=== PATIENT | male | born 1950 | race Caucasian/White ===

== ENCOUNTER 2019-05-05 10:31 | Emergency (ER) | payer MEDICARE ==
[2019-05-05] MEDS ORDERED: Doxycycline 100 MG Cap ONE (11:15)
--- NOTE | 2019-05-05 13:23 | ER ---
REASON FOR EMERGENCY ROOM VISIT: Tick bite. HISTORY OF PRESENT ILLNESS: This 68-year-old man is accompanied to his because of the presence of a tick bite that caused a red rash on his left upper buttock region. He states that he sustained a tick bite approximately 1 week ago and it was on his upper outer buttock area. He does not know if it was a deer tick or regular tick, but it was removed and he is unsure as to how long it was there. He has had a number of instances in the past where he has found the ticks on his body, the vast majority of which are regular ticks and not the smaller deer ticks, but he has picked a couple of smaller ticks off his body as well, none of which were ever stuck to his skin. He has not had any fever, chills, arthralgias, or headaches. PAST MEDICAL HISTORY: Noncontributory. MEDICATIONS: Aceon. ALLERGIES: NONE TO MEDICATIONS. REVIEW OF SYSTEMS: Pertinent positives and negatives as listed in the HPI. PHYSICAL EXAMINATION: GENERAL: Reveals a pleasant man, in no acute distress. He is afebrile. VITAL SIGNS: Pulse is 72, blood pressure 146/97, respiratory rate 18, O2 saturation 100%. SKIN: He has one area where you could see a tick bite in the upper outer left buttock region. It has a 3 to 4 cm diameter area of erythema that is fairly well demarcated. It is not tender. This does not have the appearance of erythema migrans or a "target rash." IMPRESSION: Tick bite, uncertain as to the offending agent. Very unlikely to be high risk for transmission of Lyme disease. PLAN: We will go ahead with prophylactic treatment as the patient wants to proceed with this. Therefore, at his request, we will give him doxycycline 200 mg as a onetime dose. I informed him as to issues concerning photosensitivity and the possibility of GI upsets. He was advised to take this with food. I did discuss with him and his the importance of precautions that should be taken including frequent laundering of clothing, application of DEET and other agents as repellents. All questions were answered. They understand and agree with this plan. THERON /[id number]
== END 2019-05-05 11:20 | disposition home or self-care (01) ==
LOC: LB.ED 10:31
DX: S30.860A Insect bite (nonvenomous) of lower back and pelvis, initial encounter (principal); W57.XXXA Bitten or stung by nonvenomous insect and other nonvenomous arthropods, initial encounter
CPT/HCPCS: 99281; A9270; 99282

== ENCOUNTER → 2019-09-18 | Outpatient (CLI) | payer MEDICARE | LOC: LB.MAM 13:40 | PROVIDERS: ATTEND Family Medicine | DX: E23.0 Hypopituitarism (principal) | CPT/HCPCS: 77080 ==

== ENCOUNTER 2020-04-11 16:45 | Emergency (ER) | payer MEDICARE ==
[2020-04-11] MEDS ORDERED: Diltiazem 25 MG/5 ML SDV IVPUSH ONE ×2 (16:58→17:48)
[2020-04-11] MEDS ORDERED: Sodium Chloride 0.9% 10 ML Syringe FLUSH PRN (17:26)
[2020-04-11] MEDS ORDERED: Sodium Chloride 0.9% 1,000 ML IV SCH (17:30)
[2020-04-11] MEDS: Diltiazem 100 MG in Sodium Chloride 0.9% 100 ML IV SCH ×2 (19:07→21:10)
[2020-04-11] MEDS ORDERED: Apixaban 5 MG Tab PO SCH (20:00)
--- NOTE | 2020-04-12 00:18 | DISCH ---
DATE OF TRANSFER: To [facility] in [place] is 04/11/2020. ADMISSION DIAGNOSES: Acute atrial fibrillation with elevated troponin 1. DISCHARGE/TRANSFER DIAGNOSES: Acute atrial fibrillation with elevated troponin 1. HOSPITAL COURSE: This 69-year-old man with no prior significant cardiac history , was admitted through the emergency room with a 4-day history of feeling weak and generalized malaise as well as having tachycardia and lower than usual blood pressure at home. Details concerning the history prior to that is as outlined in his admission history and physical. It should be noted that he was set to have a radionuclide nuclear stress test last summer because of an elevated calcium coronary score, but that was never followed up on. He does not have a history of smoking or past coronary history. He does have a history of the following; 1. Hypertension. 2. Type 2 diabetes mellitus. 3. Hypercholesterolemia. 4. Cataracts. 5. Possible glaucoma. Medications include Aceon 8 mg p.o. daily, metformin 500 mg p.o. daily, and aspirin 81 mg p.o. daily. The patient came in, was in acute atrial fibrillation with a rapid ventricular response of 145. He did have some Q-waves in inferior leads, but otherwise no evidence of acute myocardial ischemia was noted. He received a dose of diltiazem IV followed by a 2nd dose of diltiazem 25 mg IV and was placed on diltiazem drip at 5 mg/hour. This controlled his ventricular rate and he has maintained it in the high 70s to low 90s throughout his brief hospital stay. His initial troponin when he was seen in the emergency room was 0.23, but a followup troponin approximately 4-5 hours later was elevated significantly at 0.315. His electrolytes on admission were normal. His CBC was normal. His renal function is normal (please see that reports). His chest x-ray showed no active acute pulmonary disease. No cardiomegaly. He remained stable and asymptomatic with regard to chest pain or shortness of breath. However, his elevated troponin was a matter of concern. Therefore, I spoke to the unix systems administrator cash reconciliation specialist at [facility] in [place], Dr. Acosta, who agreed he should be transferred there to their facility because of the ability for them from the standpoint of invasive Cardiology. I subsequently outlined the patient's history to the admitting hospitalist, Dr. Queen, who concurred. We did start him on Eliquis. He received one 5 mg dose at approximately 8:49 p.m. this evening. The reasons for wanting to transfer him were discussed with the patient. He understands and agrees with this plan. All questions were answered. THERON /[id number] MTDD
--- NOTE | 2020-04-12 03:48 | HP ---
REASON FOR EMERGENCY ROOM VISIT: Rapid pulse. HISTORY: This 69-year-old gentleman comes to the emergency room with a 3-day history of feeling somewhat weak and "crappy" as well as noticing a rapid pulse rate while at home. He noticed this 3 days ago after he felt the above-mentioned symptoms, and he checked his blood pressure and pulse with his home monitor and noticed that his heart rate was as high as the 140s to 160 range and his blood pressure generally ranged in the 100 to 120 systolic range, but on a couple of occasions, he dipped below 100. He did not experience any chest pain, chest discomfort, chest tightness, arm pain, jaw pain, shortness of breath, nausea, or vomiting. He thought perhaps he was somewhat dehydrated, therefore he drank a lot of Pedialyte and water, and stated that he urinated a considerable amount the following day. These symptoms persisted for 3 days and he decided to come in to see Dr. Carias who noted him to be in acute atrial fibrillation with a rapid ventricular response at 142 beats per minute. He also was noted to have a troponin elevation at 0.237, but again, he did not have any symptoms of chest discomfort. Dr. Carias sent him to the emergency room where he was seen by the emergency room practitioner on-call who hooked him up to a monitor and noted his rate to be in the 140s and in atrial fibrillation. The patient's past medical history recently is significant for him seeing a aeronautical inspector because of a high coronary calcium score on screening and therefore he saw a aeronautical inspector in [place], Dr. Jones. He was advised that because of this coronary calcium score, that he undergo a nuclear stress test and that was scheduled, but the patient elected not to have this done. This was last April. Since then, he has been relatively asymptomatic. He has no history of any episodes of chest pain or exertional chest pain, unusual jaw or arm pain, or back pain. PAST MEDICAL HISTORY: Significant for: 1. Hypertension. 2. Type 2 diabetes. 3. Hypercholesterolemia. 4. History of cataracts. 5. He has had left shoulder surgery and several hernia operations. HABITS: He drinks occasionally. He is a nonsmoker. SOCIAL HISTORY: He lives at home with his . FAMILY HISTORY: Both the patient's father and mother lived to well into their 90s, his father having at age 92; he did have a pacemaker, but no history of heart attack according to the patient. His mother is alive, but is in a halfway with dementia. He has 2 sisters who are alive and well, 1 daughter who is also healthy. MEDICATIONS: Include: 1. Aspirin 81 mg p.o. daily. 2. Metformin 500 mg extended release daily. 3. Perindopril (Aceon) 8 mg p.o. daily. ALLERGIES: TO MSG. NO ALLERGIES TO MEDICATIONS. REVIEW OF SYSTEMS: Pertinent positives and negatives as listed in the HPI. PHYSICAL EXAMINATION: GENERAL: His blood pressure currently is 115/71, heart rate is 88 and irregular, respiratory rate 16, O2 sats 96% on room air. HEENT: No scleral icterus is noted. Oropharynx is normal. NECK: No bruits. No JVD is noted. No adenopathy. CHEST: Clear to auscultation with good air exchange. No wheezes, rhonchi, or rales. CARDIAC: Irregular rate without murmur. There is no friction rub noted. ABDOMEN: Nondistended. Bowel sounds are present. Soft, nontender. No hepatosplenomegaly. EXTREMITIES: Normal pulses. No edema. No deformities. No cyanosis. NEUROLOGIC: He is awake and alert and responds appropriately verbally. He moves all 4 extremities. FURTHER EMERGENCY ROOM COURSE: Immediately upon arrival and upon connecting him to a monitor, labs were drawn that included a BMP which showed his electrolytes to be normal with a potassium of 4.2, his CO2 was 27.5, his glucose was 115. His creatinine is 0.93 with an estimated GFR of greater than 60. Troponin 1 was elevated at 0.237. His TSH was normal at 1.5 to 3. CBC was performed with a white count of 8400 and a hemoglobin of 15.3. His platelet count is 298. A 12-lead EKG initially showed atrial fibrillation with a rapid ventricular response at 142 beats per minute. He had changes consistent with an inferior wall TX, age indeterminate, mainly manifested by Q-waves in lead III and in the inferior leads. A chest x-ray was obtained showing no pulmonary infiltrates or evidence of CHF. This was a portable film. He was given an initial dose of 20 mg of diltiazem, that lowered his ventricular rate to the 110 to 115 range, and he was normotensive at this point with blood pressures ranging between 110 and 115 systolic. Because of this, after approximately 20 minutes, a second dose of diltiazem was given 20 mg IV and this brought his ventricular rate to between 80 and 90. He remained in atrial fibrillation and a repeat EKG demonstrated this. It did show that he has some Q-waves in lead III and possibly aVF. In light of this and in light of no history of cardiopulmonary disease and no history of congestive failure, it was felt that he needed to be placed on a diltiazem drip and monitored overnight. IMPRESSION: Acute atrial fibrillation with controlled ventricular response and no hemodynamic instability at this time. PLAN: I spoke with Dr. Carias who initially saw him in the clinic and we agreed that he should be admitted and monitored. We will obtain serial troponin levels and a repeat 12-lead EKG in the morning. In addition, we will start him on a diltiazem drip and I will start him at 5 mg/hour. We will also begin him on Eliquis at 5 mg p.o. b.i.d. I explained to the patient the rationale for recommending this. If his troponins are further elevated or we have difficulty controlling his rate with these measures, we will consider transfer at that time. I explained to the patient that we will begin him on Eliquis and did discuss the risks, goals, and alternatives to that therapy and he agrees with this plan. All questions were answered. LENI/EMANI
--- NOTE | 2020-04-13 12:21 | CR ---
DATE OF SERVICE: 04/11/20 CLINICAL DATA: pain AP PORTABLE CHEST: No priors. The heart is enlarged. The aorta is calcified and ectatic. The lungs are clear. No pneumothorax. No pleural effusions. No other significant findings. [id number] [facility]
== END 2020-04-11 23:50 ==
LOC: LB.ED 16:45 → LB.MS 19:31 → UNDOADMOB 19:31 → LB.ED 23:50 → UNDODISOB 23:50
DX: I48.91 Unspecified atrial fibrillation (principal); I10 Essential (primary) hypertension; E11.9 Type 2 diabetes mellitus without complications; Z79.82 Long term (current) use of aspirin; Z79.84 Long term (current) use of oral hypoglycemic drugs; Z79.899 Other long term (current) drug therapy; Z91.018 Allergy to other foods
CPT/HCPCS: 36415; 71045; 84484; 93005; 96365; 96366; 96376; 99285-25; A0425; A0429; A9270-GY; J3490; J7030; J7050

== ENCOUNTER 2022-04-12 20:15 | Emergency (ER) | payer MEDICARE | END 2022-04-12 21:00 | disposition home or self-care (01) | LOC: LB.ED 20:15 | DX: I49.3 Ventricular premature depolarization (principal); I10 Essential (primary) hypertension | CPT/HCPCS: 93005; 93010; 99282; 99284-25 ==

== ENCOUNTER 2022-12-12 12:50 | Emergency (ER) | payer MEDICARE ==
[2022-12-12] MEDS ORDERED: Ketorolac 60 MG/2 ML SDV IM ONE (13:21)
[2022-12-12] MEDS ORDERED: Ketorolac 30 MG/ML SDV IM ONE (14:06)
[2022-12-12] MEDS ORDERED: Ketorolac 30 MG/ML SDV ONE (14:16)
== END 2022-12-12 14:10 | disposition home or self-care (01) ==
LOC: LB.ED 12:50
DX: S83.421A Sprain of lateral collateral ligament of right knee, initial encounter (principal); X50.1XXA Overexertion from prolonged static or awkward postures, initial encounter; W01.0XXA Fall on same level from slipping, tripping and stumbling without subsequent striking against object, initial encounter
CPT/HCPCS: 73562-RT; 96372; 99282; 99283; J1885

== ENCOUNTER 2023-08-04 08:58 | Day surgery (SDC) | payer MEDICARE ==
[~2023-08-04 08:58] MED LIST: Metoclopramide 10 MG/2 ML SDV IV PRN
[2023-08-04] MEDS: Sodium Chloride 0.9% 1,000 ML IV SCH (09:28)
[2023-08-04] MEDS ORDERED: Propofol 200 MG/20 ML SDV ONE (11:50)
== END 2023-08-04 13:05 | disposition home or self-care (01) ==
LOC: LB.SDS 08:58
PROVIDERS: ATTEND Surgery
DX: Z12.11 Encounter for screening for malignant neoplasm of colon (principal); K57.30 Diverticulosis of large intestine without perforation or abscess without bleeding; I10 Essential (primary) hypertension; E11.9 Type 2 diabetes mellitus without complications; G47.30 Sleep apnea, unspecified
CPT/HCPCS: 82947; J2704; J7030

== ENCOUNTER 2023-11-15 08:02 | Emergency (ER) | payer MEDICARE ==
[2023-11-15] MEDS ORDERED: Sodium Chloride 0.9% 10 ML Syringe FLUSH PRN (08:54)
[2023-11-15] MEDS ORDERED: Morphine 4 MG/ML VIAL IVPUSH ONE (09:07)
[2023-11-15] MEDS ORDERED: Morphine 4 MG/ML VIAL ONE (09:12)
[2023-11-15] MEDS ORDERED: Sodium Chloride 0.9% 1,000 ML IV SCH (09:15)
[2023-11-15 09:22] LABS: BASOPHILS ABSOLUTE AUTO 0.01 K/uL (0.02-0.10); BASOPHILS PERCENT AUTO 0.1 % (0.0-0.5); HEMATOCRIT 46.1 % (40.0-54.0); HEMOGLOBIN 15.8 g/dL (13.0-18.0); LYMPHOCYTES ABSOLUTE AUTO 0.47 K/uL (1.50-4.00); LYMPHOCYTES PERCENT AUTO 4.1 % (20.0-40.0); MEAN CORPUSCULAR HEMOGLOBIN 28.9 pg (27.0-32.0); MEAN CORPUSCULAR HGB CONC 34.3 g/dL (31.0-35.0); MEAN CORPUSCULAR VOLUME 84 fL (76-96); MEAN PLATELET VOLUME 10.5 fL (6.0-10.0); MONOCYTES ABSOLUTE AUTO 0.77 K/uL (0.20-0.80); MONOCYTES PERCENT AUTO 6.7 % (3.0-10.0); NEUTROPHILS ABSOLUTE AUTO 10.32 K/uL (2.00-7.50); NEUTROPHILS PERCENT AUTO 89.1 % (45.0-70.0); PLATELET COUNT,PLT 227 K/uL (150-400); RED BLOOD CELL COUNT 5.47 M/uL (4.50-6.50); RED CELL DISTRIBUTION WIDTH 14.3 % (11.0-16.0); WHITE BLOOD CELL COUNT,WBC 11.6 K/uL (4.0-11.0)
[2023-11-15 09:36] LABS: APPEARANCE,URINE CLOUDY (CLEAR); BILIRUBIN,URINE NEGATIVE (NEGATIVE); COLOR,URINE YELLOW; GLUCOSE,URINE >=1000 mg/dL (NEGATIVE); KETONES,URINE 15 mg/dL (NEGATIVE); LEUKOCYTE ESTERASE,URINE NEGATIVE (NEGATIVE); NITRITE,URINE NEGATIVE (NEGATIVE); OCCULT BLOOD,URINE TRACE-INTACT (NEGATIVE); PH,URINE 5.5 (5.0-8.0); PROTEIN,URINE 30 mg/dL (NEGATIVE); UROBILINOGEN,URINE 0.2 E.U./dL (0.2-1.0)
[2023-11-15 09:39] LABS: SQUAMOUS EPITHELIAL CELLS,UR OCCASIONAL /HPF
[2023-11-15 09:40] LABS: COARSE GRANULAR CASTS,URINE FEW /HPF; MUCUS,URINE FEW /HPF
[2023-11-15 09:41] LABS: A/G RATIO 1.2 (0.8-2.0); ALBUMIN 3.9 g/dL (3.4-5.0); ANION GAP 15.1 mmol/L (5.0-15.0); BILIRUBIN TOTAL 1.2 mg/dL (0.0-1.0); CALCIUM 8.8 mg/dL (8.5-10.1); CARBON DIOXIDE,CO2 26.9 mmol/L (21.0-32.0); CREATININE 0.95 mg/dL (0.70-1.30); EST CRCL DRUG DOSING (CG) 68.22 mL/min; PROTEIN TOTAL,TP 7.1 g/dL (6.4-8.2)
[2023-11-15] MEDS ORDERED: Sodium Chloride 0.9% 50 ML SDV FLUSH ONE (09:53)
[2023-11-15] MEDS ORDERED: Iopamidol 612 MG/ML 100 ML Bottle IV SCH (10:00)
[2023-11-15] MEDS ORDERED: Benzocaine 20% Oral Spray 59.2 ML Canister MUCMEM ONE (11:09)
[2023-11-15] MEDS ORDERED: Benzocaine/Butamben/Tetracaine Top Spray 56 GM Canister ONE (11:40)
[2023-11-15] MEDS ORDERED: Lactated Ringers 1,000 ML IV SCH (17:30)
== END 2023-11-15 19:42 ==
LOC: LB.ED 08:02
DX: K56.609 Unspecified intestinal obstruction, unspecified as to partial versus complete obstruction (principal); I10 Essential (primary) hypertension; E78.00 Pure hypercholesterolemia, unspecified; E11.9 Type 2 diabetes mellitus without complications; Z95.5 Presence of coronary angioplasty implant and graft; Z79.84 Long term (current) use of oral hypoglycemic drugs; Z79.899 Other long term (current) drug therapy; Z79.82 Long term (current) use of aspirin
CPT/HCPCS: 36415; 74018; 74177; 80053; 81001; 83605; 85025; 96361; 96374; 99285-25; J2270; J3490; J7030; J7120; Q9967

== ENCOUNTER 2024-08-08 18:16 | Emergency (ER) | payer MEDICARE ==
[2024-08-08] MEDS ORDERED: Sodium Chloride 0.9% 10 ML Syringe FLUSH PRN (19:09)
[2024-08-08 19:18] LABS: BASOPHILS ABSOLUTE AUTO 0.01 K/uL (0.02-0.10); BASOPHILS PERCENT AUTO 0.2 % (0.0-0.5); EOSINOPHILS ABSOLUTE AUTO 0.09 K/uL (0.04-0.40); EOSINOPHILS PERCENT AUTO 1.8 % (1.0-5.0); HEMATOCRIT 42.4 % (40.0-54.0); HEMOGLOBIN 14.5 g/dL (13.0-18.0); LYMPHOCYTES ABSOLUTE AUTO 1.25 K/uL (1.50-4.00); LYMPHOCYTES PERCENT AUTO 24.3 % (20.0-40.0); MEAN CORPUSCULAR HEMOGLOBIN 29.5 pg (27.0-32.0); MEAN CORPUSCULAR HGB CONC 34.2 g/dL (31.0-35.0); MEAN CORPUSCULAR VOLUME 86 fL (76-96); MEAN PLATELET VOLUME 10.7 fL (6.0-10.0); MONOCYTES PERCENT AUTO 9.7 % (3.0-10.0); NEUTROPHILS ABSOLUTE AUTO 3.29 K/uL (2.00-7.50); PLATELET COUNT,PLT 182 K/uL (150-400); RED BLOOD CELL COUNT 4.91 M/uL (4.50-6.50); RED CELL DISTRIBUTION WIDTH 14.2 % (11.0-16.0); WHITE BLOOD CELL COUNT,WBC 5.1 K/uL (4.0-11.0)
[2024-08-08] MEDS: Aspirin 81 MG Tab.Chew PO ONE (19:20)
[2024-08-08 19:41] LABS: A/G RATIO 1.3 (0.8-2.0); ALBUMIN 3.9 g/dL (3.4-5.0); ANION GAP 14.5 mmol/L (5.0-15.0); BUN/CREATININE RATIO 20.8 (6-25); CALCIUM 9.1 mg/dL (8.5-10.1); CARBON DIOXIDE,CO2 26.1 mmol/L (21.0-32.0); CREATININE 1.01 mg/dL (0.70-1.30); EST CRCL DRUG DOSING (CG) 61.14 mL/min; MAGNESIUM 1.8 mg/dL (1.8-2.4); POTASSIUM,K 3.6 mmol/L (3.5-5.1); TROPONIN I HIGH SENSITIVITY 7.9 pg/ml (<=60.4)
[2024-08-08] MEDS: Heparin Sodium 5,000 Units/ML Vial IVPUSH ONE (22:52)
[2024-08-08] MEDS: Heparin Sodium/D5W 25,000 UNITS/500 ML BAG IV SCH (22:52)
[2024-08-09 00:48] VITALS: BP 159/103; PULSE 65
== END 2024-08-09 00:35 ==
LOC: LB.ED 18:16
DX: I21.4 Non-ST elevation (NSTEMI) myocardial infarction (principal); I10 Essential (primary) hypertension; E78.00 Pure hypercholesterolemia, unspecified; E11.9 Type 2 diabetes mellitus without complications; Z79.82 Long term (current) use of aspirin; Z79.899 Other long term (current) drug therapy
CPT/HCPCS: 36415; 71045; 80053; 83735; 84484; 85025; 85379; 85730; 93005; 93010; 96365; 96366; 99285; 99285-25; A9270-GY; J1644

== ENCOUNTER 2025-03-10 16:55 | Emergency (ER) | payer MEDICARE ==
[2025-03-10] MEDS: Doxycycline 100 MG Cap PO ONE (18:32)
== END 2025-03-10 18:35 | disposition home or self-care (01) ==
LOC: LB.ED 16:55
DX: S70.361A Insect bite (nonvenomous), right thigh, initial encounter (principal); I10 Essential (primary) hypertension; I48.91 Unspecified atrial fibrillation; E78.00 Pure hypercholesterolemia, unspecified; E11.9 Type 2 diabetes mellitus without complications; Z95.5 Presence of coronary angioplasty implant and graft; Z79.84 Long term (current) use of oral hypoglycemic drugs; Z79.899 Other long term (current) drug therapy; Z79.82 Long term (current) use of aspirin; W57.XXXA Bitten or stung by nonvenomous insect and other nonvenomous arthropods, initial encounter
CPT/HCPCS: 99281; 99283; A9270-GY